=== PATIENT | male | born 1980 | race Two or more races ===

== ENCOUNTER → 2020-11-09 | Emergency (ER) | payer OTHER ==
[~2020-11-09] VITALS: Ht 185.4 cm; Wt 104.3 kg
== END | disposition left against medical advice (07) ==
LOC: ER 15:06
DX: S61.218A Laceration without foreign body of other finger without damage to nail, initial encounter (principal); W45.8XXA Other foreign body or object entering through skin, initial encounter; Y92.89 Other specified places as the place of occurrence of the external cause; Y92.9 Unspecified place or not applicable; S66.921A Laceration of unspecified muscle, fascia and tendon at wrist and hand level, right hand, initial encounter